=== PATIENT | male | born 1975 | race Caucasian/White ===

== ENCOUNTER 2017-04-10 12:07 | Emergency (ER) | payer MEDICAID ==
[~2017-04-10] VITALS: Ht 157.5 cm; Wt 54.5 kg
[2017-04-10 15:46] LABS: APPEARANCE,URINE CLOUDY (CLEAR); GLUCOSE, URINE (UA) NEGATIVE (NEGATIVE); KETONES,URINE NEGATIVE (NEGATIVE); LEUKOCYTE ESTERASE ,URINE LARGE (NEGATIVE); OCCULT BLOOD,URINE LARGE (NEGATIVE); PROTEIN,URINE TRACE (NEGATIVE)
[2017-04-10 15:48] LABS: ADD UA MICROSCOPIC YES
[2017-04-10 15:52] LABS: SQUAMOUS EPITHELIAL CELL,UR Few /LPF (None Seen); WBC,URINE 51-100 /HPF (0-5)
[2017-04-10] MEDS ORDERED: CefTRIAXone 1 GM/DEXTROSE 50 ML IV ONE (16:30)
[2017-04-10] MEDS ORDERED: LEVOFLOXACIN 500 MG/D5% WATER 100 ML IV ONE (16:30)
[2017-04-10 17:58] VITALS: BP 117/70
== END 2017-04-10 18:00 | disposition home or self-care (01) ==
LOC: EMS 12:11
DX: N39.0 Urinary tract infection, site not specified (principal)
CPT/HCPCS: 81001; 87086; 96365; 96368; 99284; J0696; J1956